=== PATIENT | female | born 1990 | race Two or more races ===

== ENCOUNTER 2022-06-17 12:02 | Emergency (ER) | payer MEDICAID ==
[~2022-06-17] VITALS: Ht 175.3 cm; Wt 81.6 kg
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
--- NOTE | 2022-06-17 13:47 | NUR ---
WAIVER SIGNED AND PLACED IN PT'S CHART
--- NOTE | 2022-06-17 13:51 | NUR ---
PT TAKEN TO RADIOLOGY
[2022-06-17] MEDS ORDERED: IBUPROFEN 600 MG TABLET PO ONE (14:00)
[2022-06-17] MEDS ORDERED: IBUPROFEN 600 MG TABLET ONE (14:54)
[2022-06-17] MEDS ORDERED: CYCL5TAB PO (15:02)
[2022-06-17] MEDS ORDERED: IBUP-1955 PO (15:02)
--- NOTE | 2022-06-17 15:08 | NUR ---
Patient discharged to home in stable condition. Written and verbal after care instructions given. Patient verbalizes understanding of instruction.
[2022-06-17 15:09] VITALS: BP 139/88
== END 2022-06-17 15:09 | disposition home or self-care (01) ==
LOC: ER 12:22
DX: M79.672 Pain in left foot (principal); M54.50 Low back pain, unspecified; M79.644 Pain in right finger(s); V49.49XA Driver injured in collision with other motor vehicles in traffic accident, initial encounter; Y93.89 Activity, other specified; Y92.413 State road as the place of occurrence of the external cause; Y99.8 Other external cause status
CPT/HCPCS: 72110-TC; 73140-TC; 73630-TC